=== PATIENT | male | born 1965 | race Caucasian/White ===

== ENCOUNTER 2017-04-15 17:01 | Emergency (ER) | payer BC ==
[~2017-04-15] VITALS: Ht 177.8 cm; Wt 108.9 kg
[2017-04-15 17:08] VITALS: Ht 177.8 cm; Wt 108.9 kg
[2017-04-15 19:08] VITALS: BP 148/93
== END 2017-04-15 19:08 | disposition home or self-care (01) ==
LOC: ED 17:01
DX: J45.909 Unspecified asthma, uncomplicated (principal)
CPT/HCPCS: J7512; J7613; J7644